=== PATIENT | male | born 1950 | race Caucasian/White ===

== ENCOUNTER 2018-10-24 08:56 | Day surgery (SDC) | payer MEDICARE ==
[~2018-10-24] VITALS: Ht 182.9 cm; Wt 102.0 kg
[~2018-10-24 08:56] MED LIST: ASPI-515 PO; ATOR40TA78 PO; BUPIVACAINE/PF 0.5% ONE; CARB1TAB PO; CHOL10002 PO; DOCU-131 PO; EPINEPHRINE 1 MG/ML, 1ML ONE; HYDR-3240 PO; LIDOCAINE 1%, 20ML ONE; PHEN-418 PO; SULF1TAB24 PO
[2018-10-24] MEDS ORDERED: FENTANYL PF 100 MCG/2ML ONE (09:08)
[2018-10-24] MEDS ORDERED: MIDAZOLAM 1 MG/ML, 2ML ONE (09:08)
[2018-10-24] MEDS ORDERED: LACTATED RINGERS 1,000 ML IV SCH (09:25)
[2018-10-24 09:28] VITALS: BP 118/79
[2018-10-24] MEDS ORDERED: LIDOCAINE-MPF 1%, 2ML INFIL ONE (09:30)
[2018-10-24] MEDS ORDERED: ACETAMINOPHEN 500 MG TABLET PO ONE (09:30)
[2018-10-24] MEDS ORDERED: GABAPENTIN 300 MG CAPSULE PO ONE (09:30)
[2018-10-24] MEDS ORDERED: PROPOFOL 10 MG/ML, 20ML ONE (10:37)
[2018-10-24] MEDS ORDERED: CEFAZOLIN 1,000 MG ONE (10:37)
[2018-10-24] MEDS ORDERED: ROCURONIUM 10MG/ML,5ML ONE (10:37)
[2018-10-24] MEDS ORDERED: DEXAMETHASONE 4 MG/ML, 1ML ONE (10:37)
[2018-10-24] MEDS ORDERED: SUCCINYLCHOLINE 20 MG/ML, 10ML ONE (10:37)
[2018-10-24] MEDS ORDERED: SUGAMMADEX 200 MG/2 ML IVPush ONE (10:37)
[2018-10-24] MEDS ORDERED: ONDANSETRON 2MG/ML, 2ML ONE (10:37)
[2018-10-24] MEDS ORDERED: ONDANSETRON 2MG/ML, 2ML IVPush PRN (11:30)
[2018-10-24] MEDS ORDERED: HYDROmorphone 1 MG/ML, 1ML INJ IV PRN (11:30)
[2018-10-24] MEDS ORDERED: ALBUTEROL SULFATE 2.5 MG/3 ML NPPB PRN (11:30)
[2018-10-24] MEDS ORDERED: KETOROLAC 30 MG/1 ML IV PRN (11:30)
[2018-10-24] MEDS ORDERED: FENTANYL PF 100 MCG/2ML IV PRN (11:30)
[2018-10-24] MEDS ORDERED: hydrALAzine 20 MG/ML, 1ML IV PRN (11:30)
[2018-10-24] MEDS ORDERED: METOCLOPRAMIDE 5 MG/ML, 2ML IV PRN (11:30)
[2018-10-24] MEDS ORDERED: OXYcodone 5 MG/5 ML ORAL.SOL UDC PO PRN (11:30)
[2018-10-24] MEDS ORDERED: LABETALOL 5MG/ML, 20ML IV PRN (11:30)
[2018-10-24] MEDS ORDERED: PROMETHAZINE 25 MG/ML, 1ML IV PRN (11:30)
[2018-10-24] MEDS ORDERED: MEPERIDINE/PF 25MG/0.5ML IVPush PRN (11:30)
[2018-10-24] MEDS ORDERED: CARBIDOPA/LEVODOPA 10 MG/100 MG TABLET PO SCH (16:00)
== END 2018-10-24 14:25 | disposition home or self-care (01) ==
LOC: OUT 08:56
PROVIDERS: ATTEND Orthopaedic Surgery
DX: S43.432A Superior glenoid labrum lesion of left shoulder, initial encounter (principal); M19.012 Primary osteoarthritis, left shoulder; M75.112 Incomplete rotator cuff tear or rupture of left shoulder, not specified as traumatic; M65.812 Other synovitis and tenosynovitis, left shoulder; M75.42 Impingement syndrome of left shoulder; G47.33 Obstructive sleep apnea (adult) (pediatric); I10 Essential (primary) hypertension; X58.XXXA Exposure to other specified factors, initial encounter; Y93.89 Activity, other specified; Y92.89 Other specified places as the place of occurrence of the external cause; Y99.8 Other external cause status
CPT/HCPCS: 29823; 29824; 29826; 64415; J0171; J0330; J0690; J1100; J2250; J2405; J2704; J3010; J3490

== ENCOUNTER → 2020-02-06 | Outpatient (CLI) | payer MEDICARE ==
[~2020-02-06] MED LIST changes: -BUPIVACAINE/PF 0.5% ONE; -EPINEPHRINE 1 MG/ML, 1ML ONE; -LIDOCAINE 1%, 20ML ONE
== END | disposition home or self-care (01) ==
LOC: CFH 12:57
PROVIDERS: ATTEND Internal Medicine
DX: K44.9 Diaphragmatic hernia without obstruction or gangrene (principal); K57.30 Diverticulosis of large intestine without perforation or abscess without bleeding; K80.20 Calculus of gallbladder without cholecystitis without obstruction; J84.10 Pulmonary fibrosis, unspecified; R91.1 Solitary pulmonary nodule; N28.1 Cyst of kidney, acquired; J35.2 Hypertrophy of adenoids; N28.89 Other specified disorders of kidney and ureter; R59.9 Enlarged lymph nodes, unspecified
CPT/HCPCS: 74176